=== PATIENT | female | born 1945 | race Caucasian/White ===

== ENCOUNTER → 2017-03-11 | Outpatient (CLI) | payer OTHER ==
[2015-07-09 12:40] VITALS: BP 156/69
[~2017-03-11] MED LIST: LEVO125T5 PO; LISI-334 PO; SIMV80TA PO
--- NOTE | 2017-03-11 10:00 | RAD ---
Abdominal ultrasound, 03/11/2017: History: Painful lump The area of clinical concern in the anterior abdominal wall in the right lower quadrant was carefully scanned. There is a 3 x 4 mm vague hyperechoic area seen in the subcutaneous fat in the area of clinical concern. This lies along the lateral aspect of the patient's old incision. No abnormal fluid collection is seen. This is a nonspecific appearance which may be due to a scar or lipoma. No other abnormality is seen.
== END | disposition home or self-care (01) ==
LOC: US 07:50
PROVIDERS: ATTEND Physician Assistant Medical
DX: R10.9 Unspecified abdominal pain (principal); R22.9 Localized swelling, mass and lump, unspecified
CPT/HCPCS: 76705

== ENCOUNTER → 2017-10-06 | Outpatient (CLI) | payer OTHER ==
[2015-07-09 12:40] VITALS: BP 156/69
--- NOTE | 2017-10-06 09:00 | RAD ---
Lumbar spine, 5 views, 10/06/2017: History: Lower back pain The bony structures are demineralized. There is moderate disc space narrowing and marginal spurring at L4-5. There are mild scattered spurs at other levels in the lumbar spine. There are moderate degenerative changes involving the facet joints in the mid and lower lumbar spine. There is a grade 1 spondylolisthesis at L3-4, probably due to facet joint arthropathy. A similar appearance was present on 02/13/2015. Moderate aortoiliac calcific plaquing is present. IMPRESSION: 1. Demineralization. 2. Chronic grade 1 spondylolisthesis at L3-4 due to facet joint arthropathy. 3. Degenerative disc disease, most severe at L4-5.
== END | disposition home or self-care (01) ==
LOC: DXRAD 08:03
PROVIDERS: ATTEND Physician Assistant Medical
DX: M54.40 Lumbago with sciatica, unspecified side (principal); M51.36 Other intervertebral disc degeneration, lumbar region; M43.16 Spondylolisthesis, lumbar region
CPT/HCPCS: 72110

== ENCOUNTER → 2019-04-26 | Outpatient (CLI) | payer OTHER ==
[2015-07-09 12:40] VITALS: BP 156/69
--- NOTE | 2019-04-26 12:13 | RAD ---
EXAM: Cervical spine, 5 views. HISTORY: Neck pain. Headaches. COMPARISON: None. FINDINGS: 5 views of cervical spine are obtained. The vertebral bodies are normal in height. The disc spaces are preserved. There is endplate remodeling and anterior spurring at the mid lower cervical levels. There are surgical clips within the anterior neck. There is left carotid atherosclerosis. IMPRESSION: 1. Mild degenerative endplate remodeling at the mid lower cervical levels. 2. No acute osseous finding. Electronically signed by: Adamaris Winter MD (04/26/2019 12:10 PM) [place] [id number]
== END | disposition home or self-care (01) ==
LOC: DXRAD 10:52
PROVIDERS: ATTEND Physician Assistant Medical
DX: M53.82 Other specified dorsopathies, cervical region (principal); I65.22 Occlusion and stenosis of left carotid artery
CPT/HCPCS: 72050

== ENCOUNTER → 2020-11-13 | Outpatient (CLI) | payer MEDICARE, OTHER ==
[2015-07-09 12:40] VITALS: BP 156/69
[~2020-11-13] MED LIST changes: -LISI-334 PO; +LISI20TA18 PO
--- NOTE | 2020-11-13 08:48 | RAD ---
EXAM: Abdomen sonogram. HISTORY: Palpable abdominal wall lumps. TECHNIQUE: Sonographic imaging of the abdomen was performed. COMPARISON: 03/11/2017. FINDINGS: There is no lesion within the site of palpable concern within the right ventral abdominal w all 9 cm lateral to the umbilicus. There is an 8 mm solid nonvascular nodule isoechoic to fat and a s econd site of palpable concern within the right abdominal wall 13 cm from the umbilicus. There is no sonographic finding at a third site of palpable concern along the lateral right abdominal wall. IMPRESSION: 1. 8 mm suspected lipoma at the site of palpable concern within the right abdomen 13 cm from the umbi licus. 2. No sonographic correlate for additional areas of palpable concern along the right abdominal wall 9 cm from the nipple and right lateral abdominal wall. Continued clinical follow-up of palpable abnorm alities is recommended. Electronically signed by: Adamaris Winter MD (11/13/2020 8:46 AM) [id number]
== END ==
LOC: US 07:58
PROVIDERS: ATTEND Physician Assistant Medical
DX: R10.9 Unspecified abdominal pain (principal); Z86.018 Personal history of other benign neoplasm
CPT/HCPCS: 76705

== ENCOUNTER → 2021-02-22 | Outpatient (CLI) | payer MEDICARE ==
[2015-07-09 12:40] VITALS: BP 156/69
--- NOTE | 2021-02-22 14:17 | RAD ---
PROCEDURE: MG BILAT SCREEN+PAO HISTORY: The patient is 75 years old and is seen for Reason: screening / Spl. Instructions: / Histor y: . COMPARISON: November 08, 2012 and February 11, 2012 TECHNIQUE: CC and MLO views of both breasts were obtained. Images were processed by the [employer] computer-aided detection system. DENSITY: There are scattered fibroglandular densities. FINDINGS: Right breast: No developing mass, suspicious calcifications or architectural distortion. Left breast: Mass within the left upper outer breast with angular margins measures 1.3 x 1.4 cm appro ximately 11.5 cm from the nipple posterior depth approximately 9:00 position. Unchanged small mass wi thin the left upper outer breast compared to 2012 IMPRESSION: New mass within the left upper outer breast, concerning for malignancy. Recommend compression views a nd ultrasound to further evaluate. BI-RADS category 0 Incomplete: Needs additional imaging evaluation Patient entered into a reminder system for annual screening mammogram. Electronically signed by: Ilya Reyes DO (02/22/2021 2:14 PM) [id number]
== END ==
LOC: MAMMO 07:56
PROVIDERS: ATTEND Physician Assistant Medical
DX: Z12.31 Encounter for screening mammogram for malignant neoplasm of breast (principal)
CPT/HCPCS: 77063; 77067

== ENCOUNTER → 2021-03-06 | Outpatient (CLI) | payer MEDICARE ==
[2015-07-09 12:40] VITALS: BP 156/69
--- NOTE | 2021-03-06 14:59 | RAD ---
EXAM: Left breast diagnostic mammogram; left breast sonogram. HISTORY: 76-year-old female presents for evaluation of a mass within the left breast demonstrated on a screening mammogram dated 02/22/2021. TECHNIQUE: Full-field and spot compression views of the left breast are obtained. Sonographic imaging of the left breast targeted to sites of mammographic abnormality was also performed. COMPARISON: 02/22/2021 BREAST PARENCHYMAL DENSITY: Level B - Scattered fibroglandular densities. FINDINGS: There is a persistent mass within the posterior 3:00 position of the left breast centered a pproximately 12 cm from the nipple. There is a smaller mass slightly anterior and lateral to this loc ation at the 2:30 position which also persists with additional mammographic images. No suspicious blaze cification is seen. Sonographic imaging of the left breast demonstrates a heterogeneous hypoechoic mass with internal blo od flow and posterior shadowing at the 3:00 position 10 cm from the nipple measuring 1.8 cm. There is a 4 mm similar-appearing mass with posterior shadowing and irregular indistinct margins at the 2:30 position 10 cm from the nipple , likely corresponding with a second smaller lesion of concern demonst rated mammographically. There are benign-appearing axillary lymph nodes. IMPRESSION: 1. 1.8 cm mass at the posterior 3:00 position of the left breast and smaller mass possibly likely rep resenting a satellite lesion at the 2:30 position, both of which are highly concerning for malignancy . 2. BI-RADS Category 5: Highly suggestive of malignancy. Sonographic and biopsy of both lesions descri bed above is recommended. These findings and recommendations were discussed with the patient and this information was communica vivian to the referring nurse practitioner office via voicemail at 1440 hours on 03/06/2021. The [facility] radiologist cell phone number was provided for callback. If your mammogram demonstrates that you have dense breast tissue, which could hide abnormalities, and if you have other risk factors for breast cancer that have been identified, you might benefit from s upplemental screening tests that may be suggested by your ordering physician. Dense breast tissue, i n and of itself, is a relatively common condition. This information is not provided to cause undue c oncern, but rather to raise your awareness and to promote discussion with your physician regarding th e presence of other risk factors, in addition to dense breast tissue. A report of your mammography re sults will be sent to you and your physician. You should contact your physician if you have any ques tions or concerns regarding this report. Mammography is a sensitive method for finding small breast cancers, but it does not detect them all a nd is not a substitute for careful clinical examination. A negative mammogram does not negate a clin ically suspicious finding and should not result in delay in biopsying a clinically suspicious abnorma lity. PQRS compliance statement - Patient information was entered into a reminder system with a target due date for the next mammogram. "Our facility is accredited by the [employer] Mammography Program." Electronically signed by: Adamaris Winter MD (03/06/2021 2:56 PM) [id number]
== END ==
LOC: MAMMO 13:43
PROVIDERS: ATTEND Physician Assistant Medical
DX: N63.42 Unspecified lump in left breast, subareolar (principal); R92.2 Inconclusive mammogram
CPT/HCPCS: 76641; 77065

== ENCOUNTER 2021-05-04 08:23 | Emergency (ER) | payer MEDICARE ==
[~2021-05-04] VITALS: Ht 167.6 cm; Wt 92.4 kg
[2021-05-04 09:01] VITALS: BP 150/63
--- NOTE | 2021-05-04 09:07 | PHYS DOC ---
Past History Past Medical History: Cancer Past Surgical History: No Surgical History Alcohol Use: None Adult General Chief Complaint Chief Complaint: GI PROBLEM HPI HPI Patient is a 76-year-old female presenting for dehydration. Patient has complicated medical history, currently undergoing treatment for breast cancer with last chemo treatment 3 weeks ago. Reports ever since she has been feeling dehydrated. She went to her oncology office yesterday but after a lengthy visit, deferred getting any fluids. Reports she woke up today with a dry mouth, nausea for which she took Zofran which improved her symptoms, but complains of feeling weaker than usual with vague epigastric pain. Patient has not had any fever, change in vision, dizziness, ripping or tearing sensation in chest, shortness of breath, productive cough, abdominal pain, urinary symptoms or ch anges in motor or sensory or neuro function. Reports her health has been at baseline status without any major changes in home medication regiment. She is vaccinated against COVID-19 with no known sick contacts. She is unsure if presenting symptoms are due to recent chemotherapy or suspect ham and beans that family member cooked yesterday Review of Systems Review of Systems Fourteen body systems of review of systems have been reviewed. See HPI for pertinent positives and negative responses, other lobo all other systems are negative, non-pertinent or non-contributory Allergies Allergies Allergies Coded Allergies Type Severity Reaction Last Updated Verified No Known Drug Allergies 07/04/15 No Physical Exam Physical Exam Constitutional: Age-appropriate, no acute distress, ambulatory back to ER bed without issues HENT: Normocephalic, atraumatic, bilateral external ears normal, oropharynx moist, no oral exudates, nose normal. Hair absent with hair wrap present Eyes: PERRLA, EOMI, conjunctiva normal, no discharge. Neck: Normal range of motion, no tenderness, supple, no stridor. Cardiovascular: Heart rate regular, sinus rhythm, no murmurs rubs or gallops Lungs & Thorax: Bilateral breath sounds clear to auscultation Abdomen: Bowel sounds normal, soft, no tenderness, no masses, no pulsatile masses. Nonsurgical abdomen, no peritoneal signs Skin: Warm, dry, no erythema, no rash. Back: No tenderness, no CVA tenderness. Extremities: No tenderness, no cyanosis, no clubbing, ROM intact, no edema. Neurologic: Alert and oriented X 3, grossly normal motor & sensory function, no focal deficits noted. Psychologic: Affect normal, judgement normal, mood normal. Current Patient Data Vital Signs Vital Signs Date Time Temp Pulse Resp B/P (MAP) Pulse Ox O2 Delivery O2 Flow Rate FiO2 05/04/21 09:01 99.5 89 20 150/63 93 Room Air Lab Results Laboratory Tests Test 05/04/21 09:21 White Blood Count 28.6 x10^3/uL Red Blood Count 4.06 x10^6/uL Hemoglobin 11.4 g/dL Hematocrit 34.4 % Mean Corpuscular Volume 85 fL Mean Corpuscular Hemoglobin 28 pg Mean Corpuscular Hemoglobin Concent 33 g/dL Red Cell Distribution Width 14.8 % Platelet Count 159 x10^3/uL Neutrophils (%) (Auto) 87 % Lymphocytes (%) (Auto) 5 % Monocytes (%) (Auto) 9 % Eosinophils (%) (Auto) 0 % Basophils (%) (Auto) 0 % Neutrophils # (Auto) 24.7 x10^3uL Lymphocytes # (Auto) 1.4 x10^3/uL Monocytes # (Auto) 2.4 x10^3/uL Eosinophils # (Auto) 0.0 x10^3/uL Basophils # (Auto) 0.1 x10^3/uL Platelet Estimate Pending Sodium Level 130 mmol/L Potassium Level 3.6 mmol/L Chloride Level 94 mmol/L Carbon Dioxide Level 28 mmol/L Anion Gap 8 Blood Urea Nitrogen 8 mg/dL Creatinine 0.8 mg/dL Estimated GFR (Cockcroft-Gault) 69.7 BUN/Creatinine Ratio 10 Glucose Level 186 mg/dL Calcium Level 8.2 mg/dL Total Bilirubin 1.2 mg/dL Aspartate Amino Transf (AST/SGOT) 110 U/L Alanine Aminotransferase (ALT/SGPT) 118 U/L Alkaline Phosphatase 174 U/L Troponin I Quantitative < 0.017 ng/mL Total Protein 6.0 g/dL Albumin 3.1 g/dL Albumin/Globulin Ratio 1.1 Current Medications Medications (Trade) Dose Ordered Sig/Gladis Route PRN Reason Start Time Stop Time Status Last Admin Dose Admin Sodium Chloride 1,000 ml @ 1,000 mls/hr 1X ONCE IV 05/04/21 09:15 05/04/21 10:14 DC 05/04/21 09:15 EKG EKG EKG ordered and interpreted by myself at 0952 hrs. as sinus rhythm at 85 bpm, unremarkable intervals, left axis deviation, no ischemic findings, no STEMI Radiology/Procedures Radiology/Procedures EXAM: CHEST 1 VIEW History: Epigastric pain COMPARISON: None available. TECHNIQUE: Single portable radiograph of the chest FINDINGS: The cardiac silhouette is unremarkable. Mild bibasilar lung atelectasis or infiltrates. Right-sided Port-A-Cath is identified. IMPRESSION: Mild bibasilar lung atelectasis or infiltrates. Electronically signed by: Dmitri Hunter MD (05/04/2021 9:42 AM) [id number] Heart Score C/O Chest Pain: No HEART Score for Chest Pain: HEART Score for Chest Pain Response (Comments) Value History Slighlty/Non-Suspicious 0 ECG Normal 0 Age > 65 2 Risk Factors >3 Risk Factors or Hx CAD 2 Troponin < Normal Limit 0 Total 4 Risk Factors: Risk Factors: DM, Current or recent (<one month) smoker, HTN, HLP, family history of CAD, obesity. Risk Scores: Risk Factors: DM, Current or recent (<one month) smoker, HTN, HLP, family history of CAD, obesity. Course & Med Decision Making Course & Med Decision Making ABCs unremarkable. I disclosed entirety of ER findings and discussed most likely diagnosis of epigastric pain of unknown etiology. Other diagnoses were discussed with patient such as ACS, pulmonary embolism and other intra-abdominal emergencies but all deemed less likely causes of patient's presentation. Patient has x3 different antiemetics prescribed by her oncologist and used Zofran prior to arrival with improvement in symptoms, she reports further improvement in symptoms after receiving 1 L IV fluid rehydration. She is vaccinated but requesting Covid swab which was performed and results pending. Entirety of ER work-up disclosed, I question patient about elevated white count but she admits to taking steroids before, during and after chemo treatments and also received a WBC boosting injection yesterday while in clinic. Joint decision made to discharge home with continued supportive care and need to update primary care physician in addition to oncologist and other subspecialists of her ER visit today. Plan of care discussed at length with need for close outpatient follow-up to review today's ER visit stressed. Strict return precautions were also discussed at length with good understanding by patient. Patient voiced understanding and agreement with the plan. Patient knows to come back for repeat evaluation if concerning signs or symptoms present prior to outp atient follow-up. Hemodynamically stable, ambulatory and well-appearing at time of disposition. Dragon Disclaimer Mary Disclaimer This electronic medical record was generated, in whole or in part, using a voice recognition dictation system. Departure Departure: Impression: Primary Impression: Dehydration Additional Impressions: Breast cancer Person under investigation for COVID-19 Disposition: HOME / SELF CARE / HOMELESS Condition: STABLE Referrals: RAMONITA KITCHEN (PCP) Additional Instructions: You were seen for fatigue, epigastric pain, dehydration, and possible infection with COVID-19. Your physical exam was reassuring. Your chest x-ray and comprehensive ER work-up was nonconcerning for any emergent or surgical issues. We tested you for COVID-19 but this test does not come back for 1 to 2 days. In the meantime you need to quarantine yourself at home away from all other individuals, especially those who are elderly or have any other chronic health issues or an immunocompromised status. You should return to the ED if you develop worsening cough, shortness of breath, chest pain, or any other new or concerning symptoms. Alternate Tylenol and ibuprofen as needed for body aches and pain. If your test does come back positive you need to quarantine yourself for 10 days until symptom-free. You should make sure to drink plenty of fluids and get plenty of rest. Please contact your primary care physician and subsp ecialist physicians to notify them of this ER visit and need for close outpatient follow-up this coming week Problem Qualifiers FRANCISCA COLON DO May 04, 2021 09:07
[2021-05-04] MEDS ORDERED: IV NORMAL SALINE 1,000ML 1,000 ML IV ONE (09:15)
--- NOTE | 2021-05-04 09:44 | RAD ---
EXAM: CHEST 1 VIEW History: Epigastric pain COMPARISON: None available. TECHNIQUE: Single portable radiograph of the chest FINDINGS: The cardiac silhouette is unremarkable. Mild bibasilar lung atelectasis or infiltrates. Ri ght-sided Port-A-Cath is identified. IMPRESSION: Mild bibasilar lung atelectasis or infiltrates. Electronically signed by: Dmitri Hunter MD (05/04/2021 9:42 AM) [id number]
[2021-05-04 09:46] LABS: BASO # 0.1 x10^3/uL (0.0-0.2); BASO % 0 % (0-3); EOS % 0 % (0-3); HEMATOCRIT 34.4 % (36.0-47.0); HEMOGLOBIN 11.4 g/dL (12.0-15.5); LYMPH # 1.4 x10^3/uL (1.0-4.8); LYMPH % 5 % (24-48); MEAN CORPUSCULAR HEMOGLOBIN 28 pg (25-35); MEAN CORPUSCULAR HGB CONC 33 g/dL (31-37); MEAN CORPUSCULAR VOLUME 85 fL (79-100); MONO # 2.4 x10^3/uL (0.0-1.1); MONO % 9 % (0-9); NEUT # 24.7 x10^3uL (1.8-7.7); NEUT % 87 % (31-73); PLATELET COUNT 159 x10^3/uL (140-400); RED BLOOD COUNT 4.06 x10^6/uL (3.50-5.40); RED CELL DISTRIBUTION WIDTH 14.8 % (11.5-14.5); WHITE BLOOD COUNT 28.6 x10^3/uL (4.0-11.0)
[2021-05-04 09:49] LABS: CALCIUM 8.2 mg/dL (8.5-10.1); CREATININE 0.8 mg/dL (0.6-1.0); GFR 69.7; POTASSIUM 3.6 mmol/L (3.5-5.1)
[2021-05-04 09:55] LABS: ALBUMIN 3.1 g/dL (3.4-5.0); ALBUMIN/GLOBULIN RATIO 1.1 (1.0-1.7); TOTAL BILIRUBIN 1.2 mg/dL (0.2-1.0)
--- NOTE | 2021-05-04 10:23 | EKG ---
[address] [address] Test Date: 2021-05-04 Test Time: 09:41:28 Pat Name: RANDOLPH OCHOA Department: Room: Gender: F Elevator Operator Service: CON : 1945 Requested By: FRANCISCA COLON Order Number: [id number] Reading MD: Measurements Intervals Logan Rate: 85 P: 0 ME: 170 QRS: -23 QRSD: 92 T: 3 QT: 328 QTc: 395 Interpretive Statements SINUS RHYTHM LEFTWARD AXIS NO SPECIFIC ECG ABNORMALITIES RI6.02 No previous ECG available for comparison
[2021-05-04 11:31] LABS: % BANDS 5 % (0-9); % LYMPHS 2 % (24-48); % METAS 1 % (0-0); % MONOS 3 % (0-10); % SEGS 89 % (35-66)
[2021-05-04 11:32] LABS: PLT ESTIMATE ADEQUATE (ADEQUATE)
== END 2021-05-04 11:36 | disposition home or self-care (01) ==
LOC: ER 08:23
DX: E86.0 Dehydration (principal); C79.81 Secondary malignant neoplasm of breast; Z20.822 Contact with and (suspected) exposure to COVID-19
CPT/HCPCS: 71045; 80053; 84484; 85007; 85025; 93005; 96360; 99285; C9803; J7030; U0003